=== PATIENT | female | born 1935 | race Caucasian/White ===

== ENCOUNTER 2018-05-14 14:33 | Inpatient (IN) ==
[2018-05-14] MEDS ORDERED: ASPIRIN PO ONE (15:02)
[2018-05-14 15:20] LABS: INR 0.96; PROTIME 13.6 Seconds (11.0-16.0)
--- NOTE | 2018-05-14 15:29 | Diag Imaging Result Doc PS360 ---
EXAM: CHEST-2 VIEWS HISTORY: cp TECHNIQUE: Chest two views COMPARISON: None. FINDINGS: The lungs are hyperexpanded. The heart is not enlarged. The vessels are not distended. There are no infiltrates. No pleural effusions. Mild to moderate scoliosis. Long-standing arthritis to each shoulder. IMPRESSION: Emphysema. Electronically signed by Russel Rankin 05/14/2018 3:27 PM
[2018-05-14 15:33] LABS: BASO# 0.05 X1000 (0.0-0.2); BASO% 0.3 % (0.0-0.8); EOS# 0.51 X1000 (0.0-0.7); EOS% 3.5 % (0.0-10.0); HEMATOCRIT 18.6 % (37.0-47.0); HEMOGLOBIN 5.2 g/dL (12.0-16.0); IMM GRAN# 0.02 X1000 (0.0-0.04); IMM GRAN% 0.1 % (0.0-0.5); LYMPH# 1.29 X1000 (1.2-3.4); LYMPH% 8.8 % (20.5-51.1); MCH 25.1 PG (27-31); MCV 89.9 FL (81-99); MONO# 0.43 X1000 (0.11-0.59); MONO% 2.9 % (1.7-9.3); MPV 10.4 FL (7.4-10.4); NEUT# 12.42 X1000 (1.4-6.5); NEUT% 84.4 % (42.2-75.2); PLT 392 X1000 (130-400); RBC 2.07 XMIL (4.2-5.4); RDW 15.5 % (11.5-14.5); WBC 14.72 X1000 (4.8-10.8)
[2018-05-14 15:42] LABS: ALB/GLOB RATIO 1.4; ALBUMIN 3.8 g/dL (3.5-5.0); CREATININE 1.5 mg/dL (0.5-0.9); TOTAL BILIRUBIN 0.25 mg/dL (0.20-1.00); TOTAL PROTEIN 6.5 g/dL (6.3-8.3)
[2018-05-14] MEDS ORDERED: PROTONIX IV ONE (16:58)
[2018-05-14] MEDS ORDERED: PEPCID IV ONE (16:58)
[2018-05-14] MEDS ORDERED: SODIUM CHLORIDE 0.9% INJ ONE (16:58)
--- NOTE | 2018-05-14 17:28 | PROVIDER DOCUMENTATION ---
This chart was entered by Olivia Dias Scribe, acting as scribe for Aurelio Durán MD. HPI-Abdominal Pain/GI Problem - General Chief Complaint: Chest Pain Stated Complaint: HEAVINESS IN CHEST Time Seen by Provider: 05/14/18 15:37 Source: patient Allergies/Adverse Reactions: Patient Allergies Allergy/AdvReac Type Severity Reaction Status Date / Time promethazine HCl * AdvReac Intermediate VOMITING Verified 05/02/17 01:48 [From Phenergan] Home Medications: Home Medication List Medication Instructions Recorded Confirmed Last Taken Type Oxycodone HCl/Acetaminophen 1 each PO BID 05/02/17 05/14/18 05/14/18 History [Oxycodon-Acetaminophen 7.5-325] ATORVAstatin [Lipitor] 40 mg PO DAILY 02/25/18 05/14/18 1 Day Ago History ~05/13/18 Aspirin 81 mg PO DAILY 02/25/18 05/14/18 05/14/18 History Diclofenac Sodium 75 mg PO DAILY 02/25/18 05/14/18 05/14/18 History Duloxetine [Cymbalta] 60 mg PO DAILY 02/25/18 05/14/18 05/14/18 History Gabapentin 100 mg PO BID 02/25/18 05/14/18 05/14/18 History Metoprolol Succinate E.r. [Toprol 50 mg PO DAILY 02/25/18 05/14/18 05/14/18 History Xl] Ticagrelor [Brilinta] 90 mg PO BID 02/25/18 05/14/18 05/14/18 History Losartan [Cozaar] 50 mg PO DAILY 05/14/18 05/14/18 05/14/18 History - History of Present Illness-ABD Nature of Presenting Problems: Patient is a 82 year old female who presents to the ED with vomiting coffee grounds. Patient states symptoms has been present for 1 month. Patient also states nausea and constipation. Patient denies abdominal pain. Patient states having stents placed 3 months ago and was placed on Brilinta. Patient states having chest pain this morning that resolved. Patient denies history of ulcers and blood transfusions. Abdominal Pain Onset Location: reports: other (patient denies abdominal pain) Quality of Pain: reports: none Severity in ED: reports: mild Onset/Duration: reports: other (1 month) Timing: reports: still present, intermittent, getting worse Activities at Onset: reports: light activity Modifying Factors: improves with: nothing Associated Symptoms: reports: constipation, nausea, vomiting, weakness Emesis Description: reports: coffee grounds Bruising or Bleeding Gums?: No Similar Symptoms Previously?: Yes Recently seen or treated by another doctor?: No Review of Systems - Adult - REVIEW OF SYSTEMS - ADULT Constitutional: reports: no symptoms reported Eyes: reports: no symptoms reported Ears, Nose, Mouth & Throat: reports: no symptoms reported Cardiovascular: reports: chest pain. denies: heart murmur, irregular heart rate Respiratory: reports: no symptoms reported Gastrointestinal: reports: hematemesis, constipation, nausea. denies: diarrhea , vomiting Genitourinary: reports: no symptoms reported Musculoskeletal: reports: muscle weakness. denies: back pain, neck pain Integumentary: reports: no symptoms reported Neurological: reports: no symptoms reported Psychiatric: reports: no symptoms reported Endocrine: reports: no symptoms reported Hematologic/Lymphatic: reports: no symptoms reported Allergic/Immunologic: reports: no symptoms reported All Other Systems: Reviewed and Negative Past History - Adult - PAST MEDICAL HISTORY-ADULT Review of Records: reports: Nursing Assessment Review, Medications Reviewed, Social history reviewed & non-contributory. Major Childhood Illnesses: reports: denies history Cardiovascular: reports: HTN Respiratory: reports: denies history Gastrointestinal: reports: denies history Obstetrical/Gynecological: reports: denies history Genitourinary: reports: denies history Musculoskeletal: reports: denies history Neurological: reports: denies history Psychiatric: reports: denies history Endocrine/Immune: reports: denies history Other Conditions: reports: denies history - PRIOR SURGERIES/PROCEDURES Surgical/Procedure History: reports: hysterectomy, orthopedic (extremity), joint replacement - IMMUNIZATION STATUS Childhood Immunizations: See Nurse Assessment Flu Vaccine: See Nurse Assessment - FAMILY HISTORY Family History: reviewed, not pertinent - SOCIAL HISTORY Smoking: denies Substance Use: denies Physical Exam-General - PHYSICAL EXAM-ADULT Initial Vital Signs Reviewed: Yes - CONSTITUTIONAL General Appearance: alert, no apparent distress - EYES Eyes: pale conjunctivae - HEAD, EARS, NOSE, MOUTH & THROAT HENMT: normal ENT inspection - NECK Neck: normal inspection - RESPIRATORY Respiratory: chest non-tender, lungs clear, normal breath sounds - CARDIOVASCULAR Cardiovascular: normal peripheral pulses, regular rate, rhythm - GASTROINTESTINAL (ABDOMEN) Abdominal Exam: normal bowel sounds, non tender, soft - GENITOURINARY Rectal Exam: deferred - MUSCULOSKELETAL Extremity: non-tender, normal inspection - SKIN Integumentary: pallor - NEUROLOGIC Neurologic: grossly normal - PSYCHIATRIC Psych/Mental Status: normal mood/affect, oriented x 3 Progress - PLAN OF CARE/RESULTS Progress/Plan/Lab Results: Vital Signs - 8 hr 05/14/18 14:43 Temperature 98.8 F Pulse Rate 57 L Respiratory Rate 18 Blood Pressure 125/38 O2 Sat by Pulse Oximetry 96 Laboratory Results - last 24 hr 05/14/18 05/14/18 05/14/18 14:56 14:56 14:56 WBC 14.72 H RBC 2.07 L Hgb 5.2 L* Hct 18.6 L MCV 89.9 MCH 25.1 L MCHC 28.0 L RDW Std Deviation 15.5 H Plt Count 392 MPV 10.4 Immature Gran % (Auto) 0.1 Neut % (Auto) 84.4 H Lymph % (Auto) 8.8 L [place] % (Auto) 2.9 Eos % (Auto) 3.5 Baso % (Auto) 0.3 Immature Gran # (Auto) 0.02 Neut # (Auto) 12.42 H Lymph # (Auto) 1.29 [place] # (Auto) 0.43 Eos # (Auto) 0.51 Baso # (Auto) 0.05 PT INR PTT (Actin FS) Sodium 142 Potassium 5.0 Chloride 105 Carbon Dioxide 21 L Anion Gap 16 BUN 54 H Creatinine 1.5 H Estimated GFR/1.73 m2 33 BUN/Creatinine Ratio 36 Glucose 164 H Calculated Osmolality 302 Calcium 9.0 Total Bilirubin 0.25 AST 22 ALT 24 Alkaline Phosphatase 77 Creatine Kinase 52 Troponin T Kvi-A-Tgzsxvqvcrm Pept 2777 H Total Protein 6.5 Albumin 3.8 Globulin 2.7 Albumin/Globulin Ratio 1.4 05/14/18 05/14/18 14:56 14:56 WBC RBC Hgb Hct MCV MCH MCHC RDW Std Deviation Plt Count MPV Immature Gran % (Auto) Neut % (Auto) Lymph % (Auto) [place] % (Auto) Eos % (Auto) Baso % (Auto) Immature Gran # (Auto) Neut # (Auto) Lymph # (Auto) [place] # (Auto) Eos # (Auto) Baso # (Auto) PT 13.6 INR 0.96 PTT (Actin FS) 29.0 Sodium Potassium Chloride Carbon Dioxide Anion Gap BUN Creatinine Estimated GFR/1.73 m2 BUN/Creatinine Ratio Glucose Calculated Osmolality Calcium Total Bilirubin AST ALT Alkaline Phosphatase Creatine Kinase Troponin T 0.019 Gin-L-Chjbwkvhoua Pept Total Protein Albumin Globulin Albumin/Globulin Ratio Orders Category Date Time Status Cardiac Monitoring DIRECTED Care 05/14/18 15:03 Active Oxygen Therapy- ED Nursing DIRECTED Care 05/14/18 15:03 Active Saline Loc NOW Care 05/14/18 15:03 Active Transfuse .Give-Transfuse Care 05/14/18 15:43 Active CHEST-2 VIEWS [RAD] Stat Exams 05/14/18 15:03 Completed CBC WITH ELECTRONIC DIFF [HEME] Stat Lab 05/14/18 14:56 Completed CK PROFILE [SP CHEM] Stat Lab 05/14/18 14:56 Completed COMPREHENSIVE METABOLIC PANEL [CHEM] Stat Lab 05/14/18 14:56 Completed PRO B-NATRIURETIC PEPTIDE Stat Lab 05/14/18 14:56 Completed PROTIME WITH INR [COAG] Stat Lab 05/14/18 14:56 Completed PTT [COAG] Stat Lab 05/14/18 14:56 Completed TROPONIN T Stat Lab 05/14/18 14:56 Completed TYPE & SCREEN [BBK] Stat Lab 05/14/18 15:43 Uncollected Aspirin Med 05/14/18 15:02 Discontinued 325 mg PO NOW ONE CP/SOB/Palp >45 yrs of Age Stat Oth 05/14/18 15:02 Ordered EKG [EKG] Stat Ther 05/14/18 15:03 Ordered Result Diagrams: 05/14/18 14:56 05/14/18 14:56 - REASSESSMENT Reassessment #1 Time Reassessed: 17:22 Status: improving (pantop iv and transfusions in process, pt is pain free and no distress. note elevation Cr, BUN and BNP. Will begin transfusion w/o iv fluid bolus.) - EKG 1 Time of EKG reading by physician:: 14:51 EKG Read and Signed by:: Aurelio Durán EKG Interpretation (*Must complete 3 of following elements*): Abnormal Rate: 85 Rhythm: sinus rhythm with premature atrial complexes Comments: low voltage QRS; septal infarct, age undetermined - XRAY 1 XRAY Study: Chest Impression: See EMR Report ( EXAM: CHEST-2 VIEWS HISTORY: cp TECHNIQUE: Chest two views COMPARISON: None. FINDINGS: The lungs are hyperexpanded. The heart is not enlarged. The vessels are not distended. There are no infiltrates. No pleural effusions. Mild to moderate scoliosis. Long-standing arthritis to each shoulder. IMPRESSION: Emphysema. Electronically signed by Russel Rankin 05/14/2018 3:27 PM 05/14/18 1527 Interpreting Physician: Russel Rankin MD Dictated Date/Time: 05/14/18 1526 cc: Aurelio Durán MD; Ken Reynolds MD) - CONSULTS/PCP/HOSPITALIST Notification #1 *Consult/PCP/Hospitalist*: Dr. Friend Time Discussed: 16:50 Reason/Comments: Dr. Durán consulted with Dr. Friend about patient. Consult Disposition: other (Dr. Friend states she will consult on patient.) #2 Consult: Dr. Reynolds Time Discussed: 17:13 Reason/Comments: Dr. Durán consulted with Dr. Reynolds about patient. Consult Disposition: Admit Departure - Departure Date of Disposition Decision: 05/14/18 Time of Disposition Decision: 17:19 DIAGNOSIS: Anemia, Upper GI bleeding Disposition: ADMITTED INPATIENT 09 Certified Medical Emergency: Emergent Condition: Stable Referrals and Follow-Ups: Ken Reynolds MD [Primary Care Provider] - - Critical Care Note This patient required my direct & personal management of CC.: Yes Total Time (mins): 37 Critical Care Statement: This patient required my direct personal management to treat or rule out processes, the absence of which, could potentiallly result in sudden, clinically significant life or limb threatening deterioration. Attestation - Physician/ FREDIS Attestation The physician spent face to face time with patient:: Yes Advanced Practice Provider documentation review:: Supervising physician onsite and consulted in the evaluation and care of this patient. The physician did have a face to face encounter with the patient. This chart was documented by the indicated scribe, (Olivia Dias Scribe) and accurately reflects the services I performed and decisions made by me, Aurelio Durán MD, as attested by the provider's signature.
[2018-05-14 17:44] LABS: URINE SOURCE CATH
[2018-05-14 17:49] LABS: BILIRUBIN URINE NEGATIVE (NEGATIVE); BLOOD URINE NEGATIVE (NEGATIVE); COLOR YELLOW; GLUCOSE URINE NEGATIVE (NEGATIVE); KETONE URINE NEGATIVE (NEGATIVE); LEUKOCYTES URINE NEGATIVE (NEGATIVE); NITRITE URINE NEGATIVE (NEGATIVE); PROTEIN URINE NEGATIVE (NEGATIVE); TURBIDITY URINE HAZY (CLEAR); UR EPITHELIAL CELLS >10 /HPF (<10); URINE BACTERIA 2+ /HPF; URINE RBC <10 /HPF (<10); URINE WBC <10 /HPF (<10); UROBILINOGEN URINE NORMAL (NORMAL)
--- NOTE | 2018-05-14 18:07 | HISTORY AND PHYSICAL ---
HISTORY: Ms. Nicole is an 82-year-old patient of mine, who for the last 3 to 4 days she has had nausea. Apparently, she came out of [place]. She had two coronary stents placed for coronary artery disease and cardiac ischemia. She has done fairly well at home, but the family states she has had some persistent nausea a couple of times a week. This last 3 or 4 days she has thrown up some coffee-ground color emesis, and complained of some sharp chest pain. No squeezing or pressure pain. No pain radiating to the neck or arm. She was brought here to the emergency room where I found her hemoglobin was less than 6. PAST MEDICAL HISTORY: 1. She has had some depression. 2. Osteoarthritis. 3. Hypertension. 4. Hypercholesterolemia. Recent myocardia ischemia with 2 stents placed. I think she has at least 3-vessel disease. SOCIAL HISTORY: Negative for alcohol or tobacco. She lives alone at the present time. Very attentive family. FAMILY HISTORY: Positive for coronary artery disease in her family. REVIEW OF SYSTEMS: General: No weight gain or loss. No fever or chills. HEENT: No change in visual or hearing acuity. Respiratory: No increased work of breathing or dyspnea. Cardiovascular: No chest pain or tachy palpitation. Gastrointestinal and Genitourinary: No gross hematuria or dysuria. Musculoskeletal/Neurologic: No significant complaints. Endocrinologic/Hematologic: No significant history. PHYSICAL EXAMINATION: GENERAL: In the emergency room, she was in the hallway, awake and alert, looked very pale. VITAL SIGNS: Temperature 98.8 degrees, pulse 57, respirations 18, blood pressure 125/38. HEENT: Pupils are equal and round. LUNGS: Clear in all lung rivero. CARDIOVASCULAR: Regular rhythm and rate without murmur or S3. ABDOMEN: Soft. SKIN: Warm and dry. Weight 145 pounds, height 5 feet. LABORATORY: White blood cell count was 74511, hemoglobin 5.2, hematocrit was 18, and platelet count 392,000. Sodium 142, potassium 5.0, chloride 105, bicarb 21, BUN 54, and creatinine 1.5. Calcium 9.0. ProBNP was 2777, creatine kinase 52. Troponin was 0.019. Protime 13.6. INR 0.96. PTT was 29. Her chest x-ray showed some emphysema. Lungs are hyperexpanded. No infiltrates or pleural effusion. Mild to moderate sclerosis appreciated in the thoracic spine. Longstanding arthritis in each shoulder. ASSESSMENT AND PLAN: 1. Suspect upper gastrointestinal bleed. Could be gastritis. Could also have esophageal or Lisa-Miles tear. She has been throwing up some. She could have a peptic ulcer. We will put her on IV Protonix. Give her 2 units of blood tonight. Ask GI to see. Dr. Aida Friend has agreed to evaluate. We will give her a little bit of fluids tonight as well. 2. Recent coronary stents placed. Troponin mildly elevated. We will watch serial cardiac enzymes and this could be a supply demand ischemia so we will give her some blood. 3. Osteoarthritis. 4. History of hypercholesterolemia aware. I do want to check a thyroid, B12 and folate. We will check her iron studies, and move her if we can to [facility]. We do not have any beds in the hospital at this time so she may be in the emergency room for awhile. cc: Ken Reynolds MD
[2018-05-14] MEDS ORDERED: ZOFRAN IV PRN (18:55)
[2018-05-14] MEDS ORDERED: TYLENOL PO PRN (18:55)
[2018-05-14 20:01] LABS: IRON SATURATION 5 %; TIBC 315 ug/dL; TOTAL IRON 17 ug/dL (49-151); UNBOUND IRON 298 ug/dL (112-346)
--- NOTE | 2018-05-14 20:32 | ED EKG INTERP ---
This chart was entered by Kali Cornell Scribe, acting as scribe for Irineo Gomez MD. EKG Interpretation - EKG Time of EKG reading by physician:: 20:21 EKG Read and Signed by:: Irineo Gomez EKG Interpretation (*Must complete 3 of following elements*): Abnormal Rate: 71 Rhythm: NSR Comments: [place] ECG Attestation - Physician/ FREDIS Attestation Patient care was provided by Advanced Practice Provider:: No The physician spent face to face time with patient:: Yes Advanced Practice Provider documentation review:: Supervising physician onsite and consulted in the evaluation and care of this patient. The physician did have a face to face encounter with the patient. This chart was documented by the indicated scribe, (Kali Cornell Scribe) and accurately reflects the services I performed and decisions made by me, Irineo Gomez MD, as attested by the provider's signature.
[2018-05-14] MEDS ORDERED: BENADRYL IV ONE (21:33)
[2018-05-14] MEDS: CARAFATE LIQUID PO SCH (21:45)
[2018-05-14] MEDS ORDERED: LINZESS PO ONE (22:12)
[2018-05-14] MEDS: NEURONTIN PO SCH (22:30)
[2018-05-14] MEDS: PERCOCET-5 PO SCH (22:30)
[2018-05-15] MEDS: NS 1,000 ML IV SCH ×3 (00:20→17:42)
[2018-05-15] MEDS: PROTONIX 80 MG in NS 80 ML IV SCH ×2 (00:21→08:37)
[2018-05-15] MEDS: CARAFATE LIQUID PO SCH ×4 (01:50→19:57)
[2018-05-15 05:44] LABS: HEMATOCRIT 25.9 % (37.0-47.0); HEMOGLOBIN 7.9 g/dL (12.0-16.0); MCH 27.4 PG (27-31); MCHC 30.5 g/dL (33-37); MCV 89.9 FL (81-99); MPV 10.7 FL (7.4-10.4); RBC 2.88 XMIL (4.2-5.4); RDW 14.5 % (11.5-14.5); WBC 11.46 X1000 (4.8-10.8)
--- NOTE | 2018-05-15 06:00 | CONSULTATION ---
DATE OF CONSULTATION: 05/14/2018 REFERRING PHYSICIAN: Ken Reynolds MD INDICATION FOR CONSULTATION: 1. Hematemesis. 2. Anemia. 3. Constipation. HISTORY OF PRESENT ILLNESS: The patient is an 82-year-old white female who has known coronary artery disease and cardiac ischemia. In February of 2018, she was admitted to [facility] following a myocardial infarction. She subsequently underwent placement of 2 cardiac stents. She reports that she was doing well, and was gradually increasing her physical activity when she began to have nausea with vomiting approximately 1 month ago. According to her son, she has had intermittent nausea with vomiting over the last month with occasional coffee-grounds emesis. For the last 3 to 4 days, it has been constant. She describes a brown emesis with flecks of coffee-ground material. However, her stools have been dark brown in color. She has chronic constipation and states that she has one bowel movement every 7 to 10 days. She denies hematochezia and melena. She reports developing substernal chest pain last evening after attending a republican where she was making Dior gifts for her family. She states that she did not call her children until this morning because she did not want to come into the emergency room overnight. Today, she had an episode of substernal chest pain which she describes as sharp in nature. It was nonradiating. There was no squeezing or pressure. There was no diaphoresis. In the emergency room, she was found to have a hemoglobin of 5.2 with hematocrit of 18.6. We are asked to participate in her care. PAST MEDICAL HISTORY: 1. Osteoarthritis. 2. Hypertension. 3. Hyperlipidemia. 4. Myocardial infarction. 5. Cardiovascular disease. 6. Ischemic cardiac disease. 7. Constipation. SOCIAL HISTORY: Negative for alcohol, tobacco or recreational drug use. The patient lives alone. She has 4 adult children who are very attentive. FAMILY HISTORY: Remarkable in that her twin sister had a massive myocardial infarction. She also had 4 vessel bypass surgery. There is no history of colon, esophageal or gastric cancer. MEDICATION ALLERGIES: Promethazine (Phenergan). HOME MEDICATIONS: 1. Aspirin 81 mg. 2. Lipitor 40 mg daily. 3. Diclofenac 75 mg daily. 4. Cymbalta. 5. Gabapentin. 6. Cozaar. 7. Toprol. 8. Oxycodone. 9. Brilinta. REVIEW OF SYSTEMS: Reveals that the patient took her last dose of Brilinta at 01:00 today. She reports constipation, but denies nausea, vomiting, or abdominal pain at this time. Her weight has been stable. She denies night sweats. PHYSICAL EXAMINATION: Vital Signs: Her blood pressure is 141/67, pulse 71, respirations 18, and temperature of 98 degrees. She is on 6 L per high-flow nasal cannula. Please note that at 19:46, she had an episode of hypotension with a blood pressure of 48/32, pulse 73, respiration 18, and oxygen saturation dropped to 75%. She has had recovery with high-flow oxygen. HEENT: Negative for jaundice. Oropharyngeal mucosal membranes are dry. Pulmonary: Lungs are clear to auscultation with normal respiratory effort. Cardiovascular: Reveals regular rate and rhythm with no murmurs, gallops, or rubs. Abdomen: Soft and nontender with no rebound or guarding. Extremities: Bilaterally are negative for cyanosis, clubbing, or edema. Neurologic: She is alert and oriented x3. OBJECTIVE DATA: Reveals a hemoglobin of 5.2 with hematocrit of 18.6 and a white count of 14.72. She has 392,000 platelets. Her PT is 13.6 with an INR 0.96 and a PTT of 29. Sodium is 142, potassium 5, chloride 105, CO2 21, BUN 54, creatinine 1.5 with a glucose of 164. Calcium is 9.0, total bilirubin 0.25, AST 22, ALT 24, alkaline phosphatase 77, total protein 6.5 and albumin 3.8. Her iron is 17 with a saturation of 5%. Her CK is 52 with a troponin of 0.052. Her BNP is 2777. IMPRESSION: 1. Hematemesis. 2. Profound anemia. 3. Constipation. 4. NSAID use. RECOMMENDATIONS: 1. Given the patient's hemoglobin of 5.2, I agree with plans for transfusion. 2. I would transfuse the patient to a hemoglobin of 7 to 8 to avoid over transfusion, and precipitation of active bleeding. 3. Begin a Protonix drip with 80 mg bolus followed by 0.8 mg/hour. 4. Begin Carafate suspension 1 g p.o. 4 times a day for 1 month and then stop. 5. Given that the patient took her last dose of Brilinta today, I recommend deferring endoscopy for a minimum of 72 hours to allow the Brilinta to be metabolized from her system. In the event of active bleeding, we will need to perform endoscopy more urgently. Otherwise, as long as she remains hemodynamically stable, the exam can be performed after 72 hours or even as an outpatient early next week. 6. For her constipation, I will begin Linzess 72 mcg given that she takes oxycodone for pain control. 7. The patient is on diclofenac. Consideration may be indicated to identify an alternate agent to the nonsteroidal anti-inflammatory medication, which can contribute to GI bleeding in this setting. I will defer to Dr. Reynolds and her pain management physician for further management. 8. Consent for a possible EGD was discussed with the patient and her son. The risks, benefits, and alternatives were reviewed. They have no further questions. 9. Additional recommendations to follow based on her clinical course. cc: MD Ken Butcher MD
[2018-05-15 06:03] LABS: ALB/GLOB RATIO 1.3; ALBUMIN 3.4 g/dL (3.5-5.0); CREATININE 1.4 mg/dL (0.5-0.9); POTASSIUM 4.8 mmol/L (3.5-5.1); TOTAL BILIRUBIN 0.45 mg/dL (0.20-1.00); TOTAL PROTEIN 6.1 g/dL (6.3-8.3)
[2018-05-15] MEDS: LINZESS PO SCH (06:20)
[2018-05-15] MEDS ORDERED: LINZESS PO SCH (07:00)
--- NOTE | 2018-05-15 07:38 | EKG Report ---
Test Performed on : 05/15/2018 07:09:44 AM Test Reason : chest pain Blood Pressure : / mmHG Vent. Rate : 068 BPM Atrial Rate : 068 BPM P-R Int : 206 ms QRS Dur : 070 ms QT Int : 406 ms P-R-T Axes : 051 -14 018 degrees QTc Int : 431 ms Normal sinus rhythm. Possible Septal infarct , age undetermined Suspect V2 lead placement variability Borderline ECG When compared with ECG of 14-MAY-2018 20:21, (Unconfirmed) No significant change was found Confirmed by Sav ROME, Andrew Duenas ([id number]) on 05/15/2018 8:16:07 AM
[2018-05-15] MEDS: COZAAR PO SCH (08:33)
[2018-05-15] MEDS: LIPITOR PO SCH (08:33)
[2018-05-15] MEDS: NEURONTIN PO SCH ×2 (08:33→20:42)
[2018-05-15] MEDS: TOPROL XL PO SCH (08:33)
[2018-05-15] MEDS: PERCOCET-5 PO SCH ×2 (08:34→19:59)
[2018-05-15] MEDS: CYMBALTA PO SCH (08:37)
[2018-05-15 08:39] LABS: T4 5.43 ug/dL (4.60-12.00)
--- NOTE | 2018-05-15 09:19 | PROGRESS NOTE ---
DATE: 05/15/2018 SUBJECTIVE: Ms. Nicole has not had any more chest pain or epigastric discomfort and no more vomiting. No more signs of bleeding. I gave her 2 units of packed red blood cells. Hemoglobin came up from 5.2 to 7.9 and hematocrit 18 to 25. She is comfortable up in [facility] bed 3. OBJECTIVE: Vital Signs: Temperature 98.1, pulse 70, respirations 16, blood pressure 118/49. Pupils are equal and round. Lungs are clear in all lung rivero. Cardiovascular: Regular rhythm and rate without murmur or S3. Abdomen soft. Skin is warm and dry. Urine output 2400 mL. REVIEW OF LABORATORY DATA: This morning, white count 11,460; yesterday was 14,000. Hemoglobin is 7.9, hematocrit 25. Sodium 141, potassium 4.8. Chloride 108. BUN 49, creatinine 1.4. Liver functions unremarkable. Her chest x-ray on arrival yesterday showed her lungs were hyperexpanded consistent with some emphysema. He has not had any trouble with air exchange or breathing. ASSESSMENT AND PLAN: 1. Suspect upper gastrointestinal bleed; however, she has had some dark stools. She was throwing up. Possibility of a Lisa-Miles tear cannot be excluded, but she seems to be doing better. She is on a Protonix drip and on some Carafate. I will let her have a full liquid diet. I appreciate Dr. Aida Friend's help. She recommends we obviously continue to stay off the Brilinta and wait 48 hours for that to get out of her system and pursue an esophagogastroduodenoscopy. 2. Coronary artery disease. Recent coronary stents placed. Aware. She does not appear to be having any active cardiac ischemia at this time. I suspect the chest pain yesterday could have been from supply demand mismatch with the anemia. 3. History of depression. She continues Cymbalta. 4. History of hypertension; appears to be well controlled. 5. Musculoskeletal pain, osteoarthritis. We have stopped her diclofenac. She seems to be comfortable at this time. Note: Her renal function appears to be stable. She does have some chronic kidney disease which appears to be maybe stage 2 or 3. We will watch her creatinine and electrolytes and plan to check those again in the morning, as well as follow her hematocrit and hemoglobin. cc: Ken Reynolds MD
--- NOTE | 2018-05-15 09:32 | EKG Report ---
Test Performed on : 05/14/2018 2:51:26 PM Test Reason : cp Blood Pressure : / mmHG Vent. Rate : 085 BPM Atrial Rate : 085 BPM P-R Int : 192 ms QRS Dur : 078 ms QT Int : 376 ms P-R-T Axes : 059 -09 042 degrees QTc Int : 447 ms Sinus rhythm. with premature atrial complexes. Low voltage QRS Septal infarct (cited on or before 15-JUN-2010) Abnormal ECG When compared with ECG of 14-MAY-2018 14:50, (Unconfirmed) Sinus rhythm. has replaced Atrial fibrillation. Nonspecific T wave abnormality no longer evident in Lateral leads Unconfirmed Result
--- NOTE | 2018-05-15 10:52 | CARDIOLOGY CONSULTATION ---
DATE: 05/15/2018 CHIEF COMPLAINT ON PRESENTATION: Chest pain. HISTORY OF PRESENT ILLNESS: Ms. Nicole is an 82-year-old female with a history of coronary artery disease and PCI. She has been experiencing episodes of chest discomfort that are substernal in nature. She had a significant amount of vomiting recently and noticed some dark granular substance that she vomited up. She is not aware of having any significant blood. She has been somewhat fatigued since she had her PCI back in January, and nauseated as well. She reports compliance with her dual-antiplatelet therapy. She reports no orthopnea, no syncope. PAST MEDICAL HISTORY: 1. Significant for coronary artery disease with an ischemic cardiomyopathy. Her last cardiac catheterization was January 29 at which time she was undergoing an evaluation for an ST elevation SD. On that study, she ended up having a left main that had 20% proximal disease. LAD had no significant disease, just scattered mild disease. First diagonal branch had a long area of disease in the mid portion with 95% stenosis. This was stented with a 2.25 x 22 mm Sanket drug-eluting stent. The patient also had a circumflex that was occluded before the mid marginal, had some faint collaterals. This was stented with a 2.25 x 18 mm Sanket drug-eluting stent. Both lesions in the circumflex and diagonal were reduced to 0% residual. The right coronary artery was dominant. PDA had 100% occlusion with [id number] collaterals. At that time, the patient had an echocardiogram with an ejection fraction of 45 to 50 percent and segmental wall motion abnormalities noted in the apex and distal anterolateral and inferoseptal. 2. ST elevation SD as detailed above. 3. Hypertension. 4. Chronic kidney disease. 5. Osteoarthritis. 6. Hyperlipidemia. SOCIAL HISTORY: Negative for alcohol or tobacco. She lives alone. FAMILY HISTORY: Significant for coronary artery disease in other family members. REVIEW OF SYSTEMS: A 10 system review of systems is negative except for those as mentioned in the HPI. PHYSICAL EXAMINATION: Vital Signs: She is afebrile. Heart rate is 71, blood pressure 118/49. Her presenting blood pressure yesterday was 140/66. General: She is in no acute distress. HEENT: Oropharynx is moist. Poor dentition. Eye examination shows pink conjunctivae and white sclerae. Neck Examination: Shows no obvious thyromegaly or thyroid tenderness. Cardiovascular: She sounds to be in a regular rate and rhythm. She has no murmurs. She has no S3. She has no lower extremity edema. Chest Examination: Clear bilaterally. She has no increased work of breathing. Abdomen: Soft, nontender, nondistended. She has no obvious organomegaly. Skin Examination: Warm and dry throughout without any rashes. Neurological: Moving all extremities well. She has no lateralizing deficits. PERTINENT DATA: She had an EKG that was performed yesterday at 1451, showing sinus rhythm with no acute ischemic changes. No evidence for injury pattern or ischemia. EKG at 7:09 this morning shows sinus rhythm, again no acute ischemic changes or signs of injury pattern. Chest x-ray demonstrated emphysematous changes. Lab data shows a white count of 11.4. Yesterday, her hematocrit was 18 and today it is 25.9, platelet count 299,000. Sodium 141, potassium is 4.8, BUN 49, creatinine is 1.4. Her cardiac enzymes have been negative over two checks. Her albumin is 3.4. ASSESSMENT: Ms. Nicole is an 82-year-old female with a history of ST elevation myocardial infarction and subsequent percutaneous coronary intervention x2 in January of 2018. She presented with a significant anemia. PLAN: At this point, the chest discomfort could be supply-demand mismatch related to her severe anemia or possibly could be GI in etiology. At this point, I would recommend discontinuation of the dual-antiplatelet therapy, which has already been done. She has completed 3 months of therapy. At this point, the bleeding complication seems to be more pressing than continuation of dual-antiplatelet therapy. After appropriate intervention for her GI issues, I would recommend resumption of her dual-antiplatelet therapy if safe from a gastroenterological standpoint. For now, she is continue on the losartan and the metoprolol as well as her high-intensity statin therapy, which I agree with. We will check an echocardiogram to re-evaluate for new wall motion abnormalities. cc: MD Ken Jones MD
[2018-05-15 13:48] LABS: HEMATOCRIT 27.5 % (37.0-47.0); HEMOGLOBIN 8.2 g/dL (12.0-16.0)
[2018-05-15] MEDS: ANUSOL-HC SUPP PR SCH ×2 (20:43→20:53)
--- NOTE | 2018-05-15 21:15 | PROGRESS NOTE ---
DATE: 05/15/2018 DATE OF ROUNDS: 05/15/2018. SUBJECTIVE: The patient states that she is feeling much better after receiving a blood transfusion. She reports that she had a very hard stool with bright red blood on the outside of the stool today. The stool was brown in color, except for the bright red blood that was on the tissue. She has a known history of hemorrhoids and chronic constipation. She feels that the Linzess 145 mcg daily might be helping as she had one dose today, followed by a bowel movement later in the day. She denies other complaints. PHYSICAL EXAMINATION: Vital Signs: Her blood pressure is 133/45, pulse 64, respirations 16, temp of 97.9. Abdomen: Soft and nontender, with no rebound or guarding. OBJECTIVE DATA: Reveals a hemoglobin of 7.9, with hematocrit of 25.9, and a white count 11.46 this morning. She had 299,000 platelets. Her sodium is 141, potassium 4.8, chloride 108, CO2 21, BUN 49, creatinine 1.4, with a glucose of 84. Calcium is 9.0, magnesium 2.0, total bilirubin 0.45, AST 17, ALT 20, alkaline phosphatase 62, total protein 6.1 and albumin 3.4. Her B12 is 593, TSH 2.17, folate 14.9. RECOMMENDATION: 1. With regard to the GI bleeding, she has had no further episodes of hematemesis overnight. After discussion with Dr. Eliseo Sheets from Cardiology, I will place her on the schedule for an EGD on Saturday. This will allow time for her Brilinta to be metabolized from her system. 2. For the constipation, continue Linzess 145 mcg 1 p.o. daily. 3. For the rectal bleeding, I will begin Preparation-H hemorrhoidal ointment which she normally uses at home on a daily basis. In addition, will begin Anusol HC suppositories twice a day for 5 days and then stop. 4. Because her procedure has been deferred until Saturday and there is no signs of active bleeding, I will advance her diet to a GI soft. 5. Additional recommendations to follow based on her clinical course. cc: MD Ken Butcher MD
[2018-05-16] MEDS: CARAFATE LIQUID PO SCH ×4 (01:04→19:47)
[2018-05-16] MEDS: PROTONIX 80 MG in NS 80 ML IV SCH ×5 (01:04→20:55)
[2018-05-16] MEDS: LINZESS PO SCH ×2 (05:51→07:34)
[2018-05-16 06:02] LABS: BASO# 0.04 X1000 (0.0-0.2); BASO% 0.4 % (0.0-0.8); EOS# 0.53 X1000 (0.0-0.7); EOS% 5.5 % (0.0-10.0); HEMATOCRIT 25.6 % (37.0-47.0); HEMOGLOBIN 7.6 g/dL (12.0-16.0); LYMPH# 1.65 X1000 (1.2-3.4); LYMPH% 17.2 % (20.5-51.1); MCH 27.4 PG (27-31); MCHC 29.7 g/dL (33-37); MCV 92.4 FL (81-99); MONO# 0.52 X1000 (0.11-0.59); MONO% 5.4 % (1.7-9.3); MPV 10.7 FL (7.4-10.4); NEUT# 6.88 X1000 (1.4-6.5); NEUT% 71.5 % (42.2-75.2); PLT 255 X1000 (130-400); RBC 2.77 XMIL (4.2-5.4); RDW 14.9 % (11.5-14.5); WBC 9.62 X1000 (4.8-10.8)
[2018-05-16 06:04] LABS: CALCIUM 8.2 mg/dL (8.8-10.2); CREATININE 1.3 mg/dL (0.5-0.9); POTASSIUM 4.9 mmol/L (3.5-5.1)
--- NOTE | 2018-05-16 07:34 | PROGRESS NOTE ---
DATE: 05/16/2018 SUBJECTIVE: Ms. Nicole is sleeping and resting comfortably and breathing comfortably. No complaints. Easy to arouse. OBJECTIVE: Temperature 97.8 degrees, pulse 64, respirations 18, blood pressure 140/50.HEENT: Pupils are equal and round. Lungs: Clear in all lung rivero. Cardiovascular: Regular rhythm and rate without murmur or S3. Abdomen: Soft. Skin: Warm and dry. Urine output is 2800. LABORATORY DATA: Hematocrit 25, hemoglobin 7.6, so stable. Creatinine was 1.3. Sodium 141, potassium 4.9, chloride 108, and BUN 28. ASSESSMENT AND PLAN: 1. Upper gastrointestinal bleed suspected given 2 units of blood. Hematocrit and hemoglobin appear to be stable. She had not had any further signs of active bleeding. 2. She has a history of an ST-elevation myocardial infarction. Subsequent percutaneous coronary intervention x2 in January of 2018. She did have some chest pain when she came in which I suspect was a supply demand mismatch, and this could probably be from the anemia. No further chest pain or signs of active coronary ischemia. Troponin was 0.076. 3. Blood pressure appears well controlled. 4. Dr. Friend is following. I think the plan is to pursue EGD. Her Brilinta has been held. Cardiology has evaluated. She probably does not need the Brilinta any more, and could be off the dual anticoagulation. I think the plan is to do an EGD on Saturday. 5. History of constipation for which she takes Linzess. She had been taking some oxycodone for pain control. We have stopped her diclofenac. My partner will be seeing her this weekend. We can continue to follow her hematocrit. cc: Ken Reynolds MD
[2018-05-16] MEDS: NS 1,000 ML IV SCH (08:54)
[2018-05-16] MEDS: PERCOCET-5 PO SCH ×3 (08:58→20:20)
[2018-05-16] MEDS: NEURONTIN PO SCH ×3 (08:58→20:20)
[2018-05-16] MEDS: TOPROL XL PO SCH (08:58)
[2018-05-16] MEDS: COZAAR PO SCH (08:58)
[2018-05-16] MEDS: CYMBALTA PO SCH (08:58)
[2018-05-16] MEDS: LIPITOR PO SCH (08:58)
[2018-05-16] MEDS: ANUSOL-HC SUPP PR SCH ×3 (09:43→20:20)
[2018-05-16] MEDS: PREPARATION H OINT TOP SCH (09:48)
--- NOTE | 2018-05-16 10:59 | ECHO REPORT ---
ORDER DATE: 05/15/2018 DIAGNOSES: MEASUREMENTS: Interventricular septum: 1.1 Left ventricle posterior wall: 0.8 Left ventricle end-diastolic diameter: 4.5 Left ventricle end-systolic diameter: 3.0 Left atrium: 4.2 Aortic root diameter: 2.7 Mean right ventricle end-diastolic dimension: SUMMARY: 1. Adequate quality study. 2. Aortic valve was trileaflet and opens normally on 2-dimensional images. Peak gradient across the aortic valve is less than 10 mmHg. Mitral, tricuspid, and pulmonic valves are without evidence of structural abnormality with mild mitral regurgitation, mild tricuspid regurgitation, and mild pulmonic insufficiency. The estimated systolic PA pressure by Doppler is 40 mmHg, suggesting mild pulmonary hypertension. Aortic root is normal in size. 3. Normal left ventricular dimension is demonstrated. Estimated left ventricular ejection fraction appears to be at least 65%. No regional wall motion abnormalities are evident. Left atrium is borderline enlarged. The right atrium and right ventricle are normal in size with normal right ventricular systolic function. 4. No pericardial effusion. 5. Appearance of inferior vena cava suggests normal central venous pressure. CONCLUSIONS: 1. Mild mitral regurgitation. 2. Mild tricuspid regurgitation with mild pulmonary hypertension by Doppler. 3. Estimated left ventricular ejection fraction at least 65%. 4. Borderline left atrial enlargement. cc: MD Eliseo Carmona MD Allen J. Schmidt, MD
--- NOTE | 2018-05-16 12:45 | CARDIOLOGY PROGRESS NOTE ---
DATE: 05/16/2018 SUBJECTIVE: She has not had any chest pain overnight. She denies any more bleeding episodes. PHYSICAL EXAMINATION: Vital Signs: She is afebrile, heart rate is 66. Blood pressure 106/49. General: No acute distress. Cardiovascular: She sounds to be in a regular rate and rhythm. She has no murmurs. She has no S3. She has no lower extremity edema. Chest: Exam is clear bilaterally. No increased work of breathing. Abdomen: Soft, nontender. PERTINENT DATA: Her hematocrit today is 25, yesterday it was 27. Sodium 141, potassium is 4.9, BUN 28, creatinine is 1.3. ASSESSMENT: Ms. Pelayo is an 82-year-old female with a PCI performed just over 3 months ago. She came in with GI bleed. PLAN: Brilinta has been stopped as has her aspirin. She is 3+ months out from her intervention. Considering the degree of her bleeding I believe that is reasonable. She will proceed with potential GI intervention towards the beginning of next week which should allow sufficient time for our for washout of the Brilinta. cc: MD Ken Jones MD
--- NOTE | 2018-05-16 18:53 | PROGRESS NOTE ---
DATE: 05/16/2018 SUBJECTIVE: The patient states that she is doing well today. She is tolerating a GI soft. Her stools have been brown. She denies nausea, vomiting, abdominal pain. She awaits an EGD on Saturday afternoon to assess the source of her bleeding. PHYSICAL EXAM: Vital Signs: Her blood pressure is 118/40, pulse 73, respirations 17, temperature of 97.5 degrees. Pulmonary: Lungs are clear to auscultation with normal respiratory effort. Cardiovascular: Reveals regular rate and rhythm with no murmurs, gallops, or rubs. Abdomen: Soft and nontender. OBJECTIVE DATA: Reveals a hemoglobin of 7.6 with hematocrit of 25.6 and a white count of 9.62. She has 255,000 platelets. Sodium is 141, potassium 4.9, chloride 108, CO2 22, BUN 28, creatinine 1.3 with a glucose of 85 and calcium of 8.2. Her troponin is 0.076. RECOMMENDATION: 1. The patient presented with profound anemia. She awaits an EGD on Saturday for further assessment given that she had witnessed hematemesis in the hospital. 2. The patient's constipation has improved with Linzess 145 mcg. She continues to have 1 hard bowel movement per day. Because her stools remain very hard and are small in volume, I will increase her Linzess to 290 mcg daily in an effort to obtain better defecation and emptying. 3. Continue regular diet. 4. Continue supportive care. 5. Complete the hydrocortisone suppositories 1 per rectum twice a day. 6. Continue Preparation H. cc: MD Ken Butcher MD
[2018-05-17] MEDS: CARAFATE LIQUID PO SCH ×4 (01:02→20:28)
[2018-05-17] MEDS: PROTONIX 80 MG in NS 80 ML IV SCH ×5 (04:58→19:21)
[2018-05-17] MEDS: LINZESS PO SCH ×2 (05:35→06:07)
[2018-05-17] MEDS: NS 1,000 ML IV SCH (05:35)
[2018-05-17] MEDS: ANUSOL-HC SUPP PR SCH ×2 (08:24→20:30)
[2018-05-17] MEDS: COZAAR PO SCH (08:25)
[2018-05-17] MEDS: NEURONTIN PO SCH ×2 (08:25→20:29)
[2018-05-17] MEDS: CYMBALTA PO SCH (08:25)
[2018-05-17] MEDS: PERCOCET-5 PO SCH ×2 (08:25→20:29)
[2018-05-17] MEDS: TOPROL XL PO SCH (08:25)
[2018-05-17] MEDS: LIPITOR PO SCH (08:25)
[2018-05-17] MEDS: PREPARATION H OINT TOP SCH (09:28)
[2018-05-17] MEDS ORDERED: TYLENOL PO ONE (13:07)
[2018-05-17] MEDS ORDERED: LASIX IV SCH (13:15)
--- NOTE | 2018-05-17 13:30 | PROGRESS NOTE ---
DATE: 05/17/2018 SUBJECTIVE: Mrs. Nicole was admitted to [facility] with acute blood loss anemia. On admission, her hemoglobin and hematocrit were 5.2 and 18.6. She was given 2 units of packed red blood cells. Her hemoglobin and hematocrit improved to 8.2 and 27.5. Her hemoglobin and hematocrit this morning were 7.6 and 25. She is still having intermittent reflux, but denies any dysphagia, melena, hematochezia or sour brash, She is on IV pantoprazole. She does have a history of essential hypertension. Her blood pressure is well controlled. Blood pressures range from 118 to 136 whereas her diastolic blood pressures have been in the range of 48 to 81. She denies any chest pain, palpitations, or anginal equivalents. OBJECTIVE: Blood pressure 137/81, pulse 70, respiratory rate 17 and temperature 98 degrees. Cardiovascular: Regular rate and rhythm. Lungs: Clear. Abdomen: Soft, nontender, with active bowel sounds. ASSESSMENT AND PLAN: 1. Acute blood loss anemia secondary to suspected upper gastrointestinal bleed. We will continue to hold aspirin and Brilinta. We will continue IV pantoprazole. I will type, cross match, and transfuse 2 units of packed red blood cells. Given her history of underlying ischemic heart disease, I would like to see her hematocrit greater than 30. 2. Essential hypertension. Her blood pressure is stable. We will continue her current regimen of medications including Toprol-XL 50 mg daily and losartan 50 mg daily. cc: MD Ken Jacinto MD
[2018-05-17] MEDS ORDERED: NS 500 ML ONE (14:52)
[2018-05-17 20:19] LABS: HEMATOCRIT 33.4 % (37.0-47.0)
[2018-05-17] MEDS: PROTONIX IV SCH ×2 (20:29→22:49)
[2018-05-18] MEDS: NS 1,000 ML IV SCH ×3 (01:23→23:17)
[2018-05-18] MEDS: CARAFATE LIQUID PO SCH ×4 (01:23→20:30)
[2018-05-18 05:48] LABS: HEMATOCRIT 30.4 % (37.0-47.0); HEMOGLOBIN 9.1 g/dL (12.0-16.0)
[2018-05-18] MEDS: LINZESS PO SCH ×2 (05:54→06:03)
[2018-05-18 06:08] LABS: CALCIUM 7.9 mg/dL (8.8-10.2); CREATININE 1.3 mg/dL (0.5-0.9); POTASSIUM 4.2 mmol/L (3.5-5.1)
[2018-05-18] MEDS: NEURONTIN PO SCH ×2 (09:02→20:30)
[2018-05-18] MEDS: COZAAR PO SCH (09:02)
[2018-05-18] MEDS: LIPITOR PO SCH (09:02)
[2018-05-18] MEDS: TOPROL XL PO SCH (09:02)
[2018-05-18] MEDS: CYMBALTA PO SCH (09:02)
[2018-05-18] MEDS: PERCOCET-5 PO SCH ×2 (09:02→20:30)
[2018-05-18] MEDS: PROTONIX IV SCH ×3 (09:02→22:25)
[2018-05-18] MEDS: ANUSOL-HC SUPP PR SCH ×3 (09:03→20:36)
[2018-05-18] MEDS: PREPARATION H OINT TOP SCH (09:10)
--- NOTE | 2018-05-18 09:53 | PROGRESS NOTE ---
DATE: 05/18/2018 HISTORY: Ms. Nicole was admitted to [facility] with acute blood loss anemia secondary to suspected upper gastrointestinal bleed. I gave her 1 unit of blood yesterday. After the transfusion, her hemoglobin and hematocrit were 10 and 33. This morning, her hemoglobin hematocrit are 9.1 and 30. She denies any reflux, sour brash, dysphagia, or intermittent epigastric pain. She is on IV pantoprazole. Her blood pressure is stable. She denies any chest pain, palpitations, or anginal equivalents. OBJECTIVE: Laboratory Data: Her hemoglobin and hematocrit were 9.1 and 30.4. Electrolytes demonstrate the following: Sodium 142, potassium 4.2, chloride 107, BUN 21, creatinine 1.3, and glucose 96. Vital Signs: Temperature 98.1 degrees, pulse 71, respiratory rate 16, BP 140/44. CV: Regular rate and rhythm. Lungs: Clear. Abdomen: Soft, nontender, with active bowel sounds. ASSESSMENT AND PLAN: 1. Hypertension. Her blood pressure is stable. We will continue her current regimen of medications. 2. Acute blood loss anemia secondary to suspected upper gastrointestinal bleed. We will continue intravenous pantoprazole. We will hold her nothing per oral after midnight and we will proceed with an esophagogastroduodenoscopy tomorrow. cc: MD Ken Jacinto MD
--- NOTE | 2018-05-18 18:54 | PROGRESS NOTE ---
DATE: 05/18/2018 SUBJECTIVE: The patient denies complaints. She is currently tolerating a GI soft diet. PHYSICAL EXAM: Her blood pressure is 136/54, pulse 77, respirations 16, temperature of 97.9 degrees. The remainder of exam was deferred. OBJECTIVE DATA: Reveals a hemoglobin of 9.1 with hematocrit of 30.4. Her sodium is 142, potassium 4.2, chloride 107, CO2 of 25, BUN 21, creatinine 1.3 with a glucose of 96. Calcium is 7.9. RECOMMENDATION: 1. Patient awaits an EGD tomorrow afternoon. Please continue to hold her anticoagulation. 2. Continue Protonix 40 mg IV q.12 hours. 3. Additional recommendations to follow based on the results of her endoscopy. cc: MD Ken Butcher MD
[2018-05-19] MEDS: NS 1,000 ML IV SCH (01:40)
[2018-05-19] MEDS: CARAFATE LIQUID PO SCH ×3 (01:43→15:32)
[2018-05-19 05:48] LABS: HEMATOCRIT 31.6 % (37.0-47.0); HEMOGLOBIN 9.6 g/dL (12.0-16.0)
[2018-05-19 05:58] LABS: CALCIUM 8.4 mg/dL (8.8-10.2); CREATININE 1.1 mg/dL (0.5-0.9); POTASSIUM 4.1 mmol/L (3.5-5.1)
[2018-05-19] MEDS: LINZESS PO SCH (06:17)
[2018-05-19] MEDS: CYMBALTA PO SCH (08:56)
[2018-05-19] MEDS: LIPITOR PO SCH (08:56)
[2018-05-19] MEDS: NEURONTIN PO SCH (08:56)
[2018-05-19] MEDS: PERCOCET-5 PO SCH (08:56)
[2018-05-19] MEDS: ANUSOL-HC SUPP PR SCH ×2 (08:57→09:01)
[2018-05-19] MEDS: COZAAR PO SCH (08:57)
[2018-05-19] MEDS: PROTONIX IV SCH (08:57)
[2018-05-19] MEDS: TOPROL XL PO SCH (08:57)
[2018-05-19] MEDS: PREPARATION H OINT TOP SCH (09:00)
--- NOTE | 2018-05-19 09:55 | PROGRESS NOTE ---
DATE: 05/19/2018 SUBJECTIVE: Ms. Nicole has done very well. No further bleeding. I think they gave her some more blood yesterday. She feels very comfortable. They are planning on doing an EGD per Dr. Aida Friend today. OBJECTIVE: Vitals: Temperature 98 degrees, pulse 80, respirations 15, blood pressure 135/51. Eyes: Pupils are equal and round. Lungs: Clear in all lung rivero. Cardiovascular: Regular rhythm and rate without murmur or S3. Abdomen: Soft. Skin: Warm and dry. LABORATORY: Electrolytes unremarkable from 05/18. ASSESSMENT AND PLAN: 1. Upper gastrointestinal bleed. She has not had any further bleeding. We did give her blood and plan on EGD today. Continue IV pantoprazole. 2. History of ST-elevated myocardial infarction last month. Subsequent percutaneous coronary intervention x2. She has been on Brilinta now actually, I think this was 3 months ago. So, we are going to stop the Brilinta. 3. Blood pressure is well controlled. 4. History of constipation, aware. We will see what the results of EGD show today. cc: Ken Reynolds MD
[2018-05-19] MEDS ORDERED: DIPRIVAN 1% ONE (13:43)
[2018-05-19] MEDS ORDERED: XYLOCAINE-MPF 2% ONE (13:46)
--- NOTE | 2018-05-19 16:45 | DISCHARGE SUMMARY ---
ADMISSION DATE: 05/14/2018 DISCHARGE DATE: 05/19/2018 HOSPITAL COURSE: This is a patient of mine, an 82-year-old, a long-standing patient of mine. For the last 3 or 4 days, she has had nausea. Apparently came out a [place] recently after myocardial infarction and had 2 coronary stents placed. She had done well at home but then developed this nausea and threw up and had some coffee-ground brown dark emesis so I am concerned about upper gastrointestinal bleed. We gave her 2 units of blood and her hematocrit indeed was 5 to low 6 and brought it up around 8. She had no further sign of bleeding, but we stopped her Brilinta and followed her through for 48 hours. She had no sign of further bleeding. Underwent EGD per Dr. Friend and found some gastric ulcers and duodenal ulcers as well. We will let her go home this evening. DISCHARGE MEDICATIONS: Will be Lipitor 40 mg a day. Cymbalta 60 mg a day. Neurontin 100 mg b.i.d. She is using Anusol HC suppositories b.i.d. Linzess 290 mcg daily. Cozaar 50 mg a day. Toprol-XL 50 mg a day. She has Percocet, and she uses 1-1/2 of Percocet 5 b.i.d. p.r.n. Protonix 40 mg a day which will continue. Carafate 1 g q.6 h. which she will continue for another 6 weeks. DISPOSITION: Plan to discharge her home. DIAGNOSTIC DATA: Her last hematocrit was 31, hemoglobin 9.6. DISCHARGE INSTRUCTIONS: She will no longer take the Brilinta. cc: Ken Reynolds MD
[2018-05-19 17:19] VITALS: BP 134/59
--- NOTE | 2018-05-19 23:28 | OPERATIVE NOTE ---
PROCEDURE DATE: 05/19/2018 REFERRING PHYSICIAN: Ken Reynolds MD. INDICATION FOR PROCEDURE: 1. Hematemesis. 2. Anemia. PROCEDURE PERFORMED: EGD with biopsy. CONSENT: Informed consent was obtained from the patient prior to the procedure. The risks, benefits, and alternatives were discussed with the patient and her son. MEDICATIONS: The patient received monitored anesthesia care. PERFORMING PHYSICIAN: Aida Friend MD. ASSISTANTS: 1. ST. [facility] 2. Ema Ren RN. 3. Shakira Rodríguez CRNA. 4. Mathieu Ramires MD (anesthesia). COMPLICATIONS: There were no complications. ESTIMATED BLOOD LOSS: 1-2 mL. SPECIMEN REMOVED: 1. Duodenal biopsy. 2. Gastric biopsy. FINDINGS: After sedation was achieved, the upper endoscope was inserted to the 2nd portion of the duodenum. The hypopharynx appeared normal. The tubular esophagus appeared normal. The GE junction was present at 35 cm from the incisors. There was a nonobstructive Schatzki's ring at the GE junction. In the gastric lumen, there was acute erosive gastritis. There were at least 5 deep erosions in the antrum. In addition, there was a 6-8 mm antral ulcer, with a superficial whitish base, and no stigmata of bleeding. On retroflexed view, the scattered erosions were again visualized. On forward view, the pylorus appeared endoscopically normal. In the duodenal bulb, there was a 10-12 mm duodenal ulcer with a whitish base, and no stigmata of bleeding. In the 1st and 2nd portions of the duodenum, there was severe duodenitis. Biopsies were taken from the duodenal and gastric mucosa. The lumen was decompressed, and the scope was removed without incident. IMPRESSION: 1. Nonobstructive Schatzki's ring. 2. Acute erosive gastritis. 3. Antral ulcer (6 to 8 mm), with no stigmata of bleeding. 4. Duodenal ulcer (10 to 12 mm in size). 5. Duodenitis. RECOMMENDATIONS: 1. Await biopsy results. 2. Continue Protonix, but may switch to oral therapy with Protonix 40 mg daily. 3. Begin Carafate 1 g p.o. 4 times a day for 4 weeks, and then stop. 4. Given that we took biopsies today, I would resume her anticoagulation in 3 days. 5. She should follow up with Dr. Ken Reynolds. 6. Return to GI clinic as needed. cc: MD Kne Butcher MD
[2018-05-20] MEDS ORDERED: PROTONIX PO SCH (07:00)
== END 2018-05-19 17:22 | disposition home or self-care (01) | DRG 378 ==
LOC: ED 14:33 → EDIPHOLD 18:13 → 3S 05-15 04:50
PROVIDERS: ADMIT Emergency Medicine; ATTEND Emergency Medicine
CPT/HCPCS: 36430; 71020; 71046; 80048; 80053; 81001; 82550; 82607; 82728; 82746; 83540; 83550; 83735; 83880; 84436; 84443; 84484; 85014; 85018; 85025; 85027; 85610; 85730; 86850; 86900; 86901; 86920; 87088; 88305; 88312; 93005; 93010; 93306; 96365; 96366; 96375; 99285; 99291; A9270; C9113; J1200; J1940; J7030; J7040; P9016; S0028; S0164